=== PATIENT | female | born 1970 | race Caucasian/White ===

== ENCOUNTER 2016-10-15 16:15 | Emergency (ER) | payer BC, OTHER ==
[~2016-10-15] VITALS: Ht 162.6 cm; Wt 74.0 kg
[~2016-10-15 16:15] MED LIST: TRM50T PO
--- OUTSIDE RECORDS SUMMARY | 2016-10-15 16:18 | XMS REPORT ---
Author Author GENERATED, SYSTEM Organization Unknown Address Unknown Phone Unavailable Care Team Providers Care Plan Coordinator Name Role Phone UNASSIGNED DOCTOR , DOCTOR PP [phone] Reason For Visit Chief Complaint INJECTION JOINT Social History Functional Status Vital Signs Results Problems Encounter Diagnosis No relevant problems exist. Encounters Encounter Diagnosis No relevant problems exist. Plan of Care Procedures No relevant procedures performed. Immunizations No immunizations administered or ordered. Hospital Course Hospital Discharge Instructions Allergies, Adverse Reactions, Alerts Latex Allergy has not been assessed.IV Contrast Allergy has not been assessed. Medication Medication reconciliation has not been performed.
--- OUTSIDE RECORDS SUMMARY | 2016-10-15 16:21 | XMS REPORT ---
Author Author GENERATED, SYSTEM Organization Unknown Address Unknown Phone Unavailable Care Team Providers Care Deputy General Counsel Name Role Phone UNASSIGNED DOCTOR , DOCTOR PP [phone] Reason For Visit Chief Complaint INJECTION JOINT [...]
[2016-10-15] MEDS ORDERED: METH40TA12 PO (16:42)
[2016-10-15] MEDS ORDERED: BUPR300T43 PO (16:42)
[2016-10-15] MEDS ORDERED: VILA40TA PO (16:42)
[2016-10-15] MEDS ORDERED: BUTA1CAP17 PO (16:42)
[2016-10-15] MEDS ORDERED: LEVO75TA4 PO (16:42)
[2016-10-15] MEDS ORDERED: SUMA50TA14 PO (16:42)
[2016-10-15] MEDS ORDERED: diphenhydrAMINE 50 MG/ML INJ (BENADRYL) IV ONE (16:45)
[2016-10-15] MEDS ORDERED: KETOROLAC 30 MG/ML (TORADOL) 1 ML VIAL IV ONE (16:45)
[2016-10-15] MEDS ORDERED: PROMETHAZINE 25 MG/ML (PHENERGAN) 1 ML VIAL IM ONE (16:45)
[2016-10-15] MEDS ORDERED: DEXAMETHASONE 10 MG/ML (DECADRON) VIAL IV ONE (18:00)
[2016-10-15 18:26] VITALS: BP 126/65
== END 2016-10-15 18:25 | disposition home or self-care (01) ==
LOC: ED 16:17
DX: G43.909 Migraine, unspecified, not intractable, without status migrainosus (principal)
CPT/HCPCS: 96361; 96372; 96374; 96375; 99284; J1100; J1200; J1885; J2550; J7030; 99282